=== PATIENT | female | born 1980 | race Caucasian/White ===

== ENCOUNTER 2019-12-15 15:47 | Outpatient (CLI) | payer OTHER, SELFPAY ==
--- NOTE | ~2019-12-15 | MR_ITS ---
EXAMINATION: MR lumbar spine wo con DATE: 12/15/2019 16:47 INDICATION: Lumbar radiculopathy. TECHNIQUE: Magnetic resonance imaging (MRI) of the lumbar spine was performed without intravenous con trast. Sequences included sagittal T2-weighted FSE, sagittal T2-weighted FS FSE, sagittal T1-weighted FSE, and axial T2-weighted FSE. COMPARISON: Lumbar spine MRI 04/29/2018 FINDINGS: There is severe atrophy of right kidney. Bone alignment is normal. Vertebral body heights a re normal. There is mildly decreased disc height at T12-L1 and moderately decreased disc height at L5 -S1. The spinal cord signal intensity is normal. The conus medullaris is at L1. The following disc le vels are specifically discussed: T12-L1: There is a right central extrusion. There is mild bilateral facet joint osteoarthritis. There is no neural foraminal stenosis. There is mild central canal stenosis. L1-L2: The disc does not extend beyond the endplate margin. There is mild bilateral facet joint osteo arthritis. There is no neural foraminal stenosis. There is no central canal stenosis. L2-L3: The disc does not extend beyond the endplate margin. There is mild bilateral facet joint osteo arthritis. There is no neural foraminal stenosis. There is no central canal stenosis. L3-L4: The disc does not extend beyond the endplate margin. There is moderate bilateral facet joint o steoarthritis. There is no neural foraminal stenosis. There is no central canal stenosis. L4-L5: The disc is mildly bulging. There is mild bilateral facet joint osteoarthritis. There is mild left neural foraminal stenosis. There is no central canal stenosis. L5-S1: The disc is bulging with superimposed right subarticular zone extrusion with mass effect on ri ght S1 nerve root in right lateral recess. There is mild bilateral facet joint osteoarthritis. There is mild bilateral neural foraminal stenosis. There is mild central canal stenosis. IMPRESSION: 1. Moderate lower lumbar spondylosis, worsened from 04/29/2018. Of note, an extrusion at L5-S1 exerts mass effect on right S1 nerve root. 2. Severe atrophy of right kidney. Reviewed, dictated and finalized at location A. IMPRESSION: 1. Moderate lower lumbar spondylosis, worsened from 04/29/2018. Of note, an extr usion at L5-S1 exerts mass effect on right S1 nerve root. 2. Severe atrophy of right kidney.
== END 2019-12-15 15:48 | disposition home or self-care (01) ==
PROVIDERS: PCP Anesthesiology; Visit Provider Anesthesiology
DX: M47.26 Other spondylosis with radiculopathy, lumbar region (principal)
CPT/HCPCS: 72148

== ENCOUNTER 2022-11-28 10:12 | Emergency (ER) | payer OTHER, SELFPAY ==
[2022-11-28] VITALS (16 sets, daily range): BP systolic 116–134; BP diastolic 61–75; PULSE 65–98; RESP 13–22; TEMP 36.9; O2SAT 95–99
--- NOTE | ~2022-11-28 | US_ITS ---
EXAMINATION: US transvaginal DATE: 11/28/2022 13:38 INDICATION: Right lower quadrant pain Comparison:No prior studies for comparison. TECHNIQUE: Multiple transabdominal and endovaginal sonographic images of the pelvis performed. FINDINGS: The uterus is surgically absent. The right ovary measures 4.9 x 2.6 x 4.4 cm and the left ovary measures 3.1 x 1.5 x 2 cm. There is a 2.6 cm complicated cyst of the right ovary. There is an additional 1.4 cm cyst of the right ovary. Th ere are small follicles in each ovary. Normal doppler signal in both ovaries. There is free fluid in the pelvis. There are no abnormal masses seen on either side. IMPRESSION: 1. Right ovarian cysts, largest being complicated measuring 2.6 cm. No evidence for ovarian torsion. Reviewed, dictated and finalized at location L.
--- NOTE | ~2022-11-28 | CT_ITS ---
CT of the Abdomen and Pelvis: Indication: Abdominal pain Technique: 2.5 mm axial scans were obtained through the abdomen and pelvis following intravenous adm inistration of 100 cc of Omnipaque 350. Dose reduction technique was used on this scan by utilizing a utomated exposure control and iterative reconstruction technique. The dose-length product (DLP) was 6 86.43 mGy-cm. Findings: Scans through the lung bases are unremarkable. The liver, spleen, pancreas, gallbladder, and adrenal glands are within normal limits. 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 There is mild left hydroureteronephrosis. No evidence of aortic aneurysm. No lymphadenopathy. No bowel obstruction or bowel wall thickening. There is no evidence to suggest acute appendicitis. Images through the pelvis were performed. Urinary bladder unremarkable. 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 There are probable several right ovarian cysts versus septated cyst measuring up to 3.5 c m in maximum diameter. Impression: Mild left hydroureteronephrosis, of uncertain etiology. No stone evident. Right kidney is severely at rophic/remote injury. 3.5 cm septated cyst versus multiple cysts within the right ovary. Reviewed, dictated and finalized at location . Impression: Mild left hydroureteronephrosis, of uncertain etiology. No stone evident. Right kidney is severely atrophic/remote injury. 3.5 cm septated cyst versus multiple cysts within the right ovary.
[2022-11-28 10:43] LABS: Basophils Absolute Auto 0.1 K/mm3 (0.0-0.1); Basophils Percent Auto 0.7 % (0.2-1.2); Eosinophils Absolute Auto 0.1 K/mm3 (0-0.3); Eosinophils Percent Auto 0.6 % (0-4.4); Hematocrit 42.1 % (37.0-47.0); Hemoglobin 13.8 g/dL (12.0-15.0); Immature Granulocyte Absolute 0.03 K/mm3 (0.00-0.031); Immature Granulocyte Percent A 0.3 % (0-0.5); Lymphocytes Absolute Auto 1.99 K/mm3 (0.9-3.2); Lymphocytes Percent Auto 19.6 % (18.3-44.2); Mean Corpuscular HGB Conc 32.8 g/dl (32-36); Mean Corpuscular Hemoglobin 32.2 pg (26-34); Mean Corpuscular Volume 98.1 fl (80-100); Mean Platelet Volume 12.7 fl (7.4-10.4); Monocytes Absolute Auto 0.4 K/mm3 (0.1-0.6); Monocytes Percent Auto 4.2 % (2.6-8.5); Neutrophils Absolute Auto 7.6 K/mm3 (1.3-6.7); Neutrophils Percent Auto 74.6 % (45.5-73.1); Platelet Count Result 230 k/mm3 (150-375); Red Blood Count 4.29 M/mm3 (4.2-5.4); Red Cell Distribution Width 13.1 % (11.5-14.5); White Blood Count 10.2 K/mm3 (4.5-10.0)
[2022-11-28 11:00] LABS: Alanine Aminotransferase 18 U/L (6-35); Albumin Level 4.2 g/dL (3.5-5.1); Alkaline Phosphatase 68 U/L (38-126); Anion Gap 8 mmol/L (8-16); Aspartate Amino Transferase 29 U/L (14-36); Bilirubin,Total 0.7 mg/dL (0.2-1.3); Blood Urea Nitrogen 16 mg/dL (7-17); Calcium 8.9 mg/dL (8.4-10.2); Carbon Dioxide 22 mmol/L (22-30); Chloride 107 mmol/L (98-107); Estimated CRCL calculation 68 ml/min; Estimated Glomerular Filt Rate > 60; Glucose 133 mg/dL (65-110); Lipase 97 U/L (23-300); Potassium 4.6 mmol/L (3.4-5.0); Sodium 137 mmol/L (137-145)
[2022-11-28 11:11] LABS: Bacteria Urine 3+ /hpf; Non Pathogenic Casts 0-2; RBC Urine 0-2 /hpf (0-2); Squamous Epithelial Cell Urine Few /hpf (Few); WBC Urine 21-50 /hpf
--- NOTE | 2022-11-28 11:12 | ED.GENADULT ---
HPI - General Adult General Chief complaint: Abdominal Pain <Jovani Sage PA-C - Last Filed: 11/28/22 16:45> Stated complaint: abd pain <Jovani Sage PA-C - Last Filed: 11/28/22 16:45> Time Seen by Provider: 11/28/22 10:50 <Jovani Sage PA-C - Last Filed: 11/28/22 16:45> Source: patient <BIN Roth Last Filed: 11/28/22 16:45> Mode of arrival: ambulatory <BIN Roth Last Filed: 11/28/22 16:45> Limitations: no limitations <Jovani Sage PA-C - Last Filed: 11/28/22 16:45> History of Present Illness HPI narrative: This is a 42-year-old female who presents to the ED with chief complaint of right lower quadrant pain beginning around 0630 this morning. [facility] to the [facility] and noticed that her pain is started to develop while at work today. Reports that the pain was across the lower abdomen and has since started to localize more to the right lower quadrant. She reports nausea but no vomiting. Reports pain is 8 out of 10. Reports pain will radiate around to the back at times. Denies fevers, chills, urinary problems or problems with bowel movements. Denies vaginal symptoms. Denies any concern for STDs. 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 She only has her left kidney. <Jovani Sage PA-C - Last Filed: 11/28/22 16:45> Related Data Allergies/adverse reactions: Allergies Allergy/AdvReac Type Severity Reaction Status Date / Time No Known Allergies Allergy Verified 11/28/22 10:13 <BIN Roth Last Filed: 11/28/22 16:45> Review of Systems Review of Systems: All systems as dictated in HPI <BIN Roth Last Filed: 11/28/22 16:45> Exam Narrative: GENERAL: Appears in pain HEAD: Normocephalic, atraumatic. EYES: PERRLA and EOMI. ENT: Nares clear, no rhinorrhea or epistaxis. Mucous membranes moist. Oropharynx without tonsillar hypertrophy exudate or other lesions. NECK: Supple. No adenopathy or masses. CHEST: No respiratory distress. Clear to auscultation. No wheezes rales or rhonchi HEART: Regular rate and rhythm. No murmur heard. Normal peripheral pulses. ABDOMEN: McBurney's point positive. Tender throughout the lower abdomen. Soft, nondistended, normal active bowel sounds. Mcintyre sign negative. Negative peritoneal signs. MSK: Normal range of motion. No edema. SKIN: Warm, dry, no rash. NEURO: Alert and oriented x3. No focal deficits. PSYCH: Normal mood and affect. <Jovani Sgae PA-C - Last Filed: 11/28/22 16:45> Course WIRE STEWARD/PA Physician Supervision This visit was performed by both a physician and an APC. I performed all aspects of the MDM as documented. <Marlin Navas MD - Last Filed: 11/28/22 20:23> Vital Signs Vital signs: Vital Signs Temperature 98.4 F 11/28/22 10:14 Pulse Rate 96 11/28/22 10:14 Respiratory Rate 17 11/28/22 10:14 Blood Pressure 134/70 11/28/22 10:14 Pulse Oximetry 99 11/28/22 10:14 Oxygen Delivery Room Air 11/28/22 10:14 Temperature 98.4 F 11/28/22 10:14 Pulse Rate 67 11/28/22 14:22 Respiratory Rate 14 11/28/22 14:22 Blood Pressure 119/75 11/28/22 14:22 Pulse Oximetry 99 11/28/22 14:22 Oxygen Delivery Room Air 11/28/22 10:14 <Jovani Sage PA-C - Last Filed: 11/28/22 16:45> Vital Signs Temperature 98.4 F 11/28/22 10:14 Pulse Rate 96 11/28/22 10:14 Respiratory Rate 17 11/28/22 10:14 Blood Pressure 134/70 11/28/22 10:14 Pulse Oximetry 99 11/28/22 10:14 Oxygen Delivery Room Air 11/28/22 10:14 Temperature 98.4 F 11/28/22 10:14 Pulse Rate 67 11/28/22 14:22 Respiratory Rate 14 10/10/23 14:22 Blood Pressure 119/75 10/10/23 14:22 Pulse Oximetry 99 11/28/22 14:22 Oxygen Delivery Room Air 11/28/22 10:14 <Marlin Navas MD - Last Filed: 11/28/22 20:23> Medical Decision Making MDM Narrative Medical decision making narrative: This is a 42-year-old female wh
[2022-11-28 11:14] LABS: Appearance Urine Clear (Clear); Bilirubin Urine Negative (Negative); Blood Urine Negative (Negative); Color Urine Yellow (Yellow); Glucose Urine UA Negative (Negative); Ketones Urine Negative (Negative); Leukocyte Esterase Ur Negative LEU/UL (Negative); Nitrate Urine Positive (Negative); Protein Urine Negative (Negative); Specific Grav Ur >= 1.030 (1.001-1.035); Urobilinogen Urine 0.2 mg/dL (<2.0); pH Urine 5.5 (5.0-9.0)
[2022-11-28] MEDS: ONDANSETRON INJ 4 MG/2 ML VIAL IV PUSH (11:15)
[2022-11-28] MEDS: HYDROmorphone HCL INJ (*CRX) 1 MG/ML SYR 0.5 MG IV PUSH ×2 (11:15→13:41)
[2022-11-28 11:34] LABS: Add Urine Microscopic? YES
--- NOTE | 2022-11-28 11:41 | PC.NURSE ---
pt off floor to CT @113 and back @1141.
[2022-11-28] MEDS: SODIUM CHLORIDE 0.9% IV 500 ML 999 ML IV CONT (13:41)
== END 2022-11-28 14:24 | disposition home or self-care (01) ==
PROVIDERS: Emergency Medicine; Emergency Provider Physician Assistant
DX: N39.0 Urinary tract infection, site not specified (principal); N83.201 Unspecified ovarian cyst, right side
CPT/HCPCS: 36415; 74177; 76830; 80053; 81001; 81025; 83690; 85025; 87077; 87086; 87186; 96361; 96365; 96375; 99284; J0696; J1170; J2405; J7040; Q9967